=== PATIENT | male | born 1965 | race African-American/Black ===

== ENCOUNTER 2016-07-09 13:40 | Emergency (ER) ==
[2016-07-09 14:33] LABS: MANUAL DIFF NEEDED? NO; URINE CULTURE NEEDED? NO; URINE MICRO REVIEW NEEDED? NO; URINE SOURCE CLEAN CATCH
[2016-07-09 14:38] LABS: BASO% 0.8 % (0.0-0.8); EOS# 0.11 X1000 (0.0-0.7); EOS% 2.2 % (0.0-10.0); HEMATOCRIT 43.2 % (42.0-52.0); HEMOGLOBIN 14.4 g/dL (14.0-18.0); LYMPH# 2.05 X1000 (1.2-3.4); LYMPH% 40.9 % (20.5-51.1); MCH 31.2 PG (27-31); MCHC 33.3 g/dL (33-37); MCV 93.5 FL (81-99); MONO# 0.38 X1000 (0.11-0.59); MONO% 7.6 % (1.7-9.3); MPV 10.2 FL (7.4-10.4); NEUT% 48.5 % (42.2-75.2); PLT 233 X1000 (130-400); RBC 4.62 XMIL (4.7-6.1)
[2016-07-09 14:45] LABS: BILIRUBIN URINE NEGATIVE (NEGATIVE); BLOOD URINE NEGATIVE (NEGATIVE); COLOR YELLOW; GLUCOSE URINE NEGATIVE (NEGATIVE); LEUKOCYTES URINE NEGATIVE (NEGATIVE); NITRITE URINE NEGATIVE (NEGATIVE); PH URINE 6.5; PROTEIN URINE NEGATIVE (NEGATIVE); SP GRAVITY URINE 1.022; TURBIDITY URINE CLEAR (CLEAR); UROBILINOGEN URINE NORMAL (NORMAL)
[2016-07-09 14:47] LABS: UR EPITHELIAL CELLS <10 /HPF (<10); URINE BACTERIA NEGATIVE /HPF; URINE RBC <10 /HPF (<10); URINE WBC <10 /HPF (<10)
[2016-07-09 14:56] LABS: AGAP 10; ALBUMIN 3.9 g/dL (3.5-5.0); ALKALINE PHOSPHATASE 88 U/L (32-122); AMYLASE 183 U/L (20-200); BUN 17 mg/dL (8-22); CALCIUM 9.7 mg/dL (8.8-10.2); CHLORIDE 105 mmol/L (98-107); COSMO 281; GOT 24 U/L (10-34); GPT 17 U/L (10-44); LIPASE 176 U/L (13-60); POTASSIUM 4.2 mmol/L (3.5-5.1); SODIUM 140 mmol/L (136-145); TCO2 25 mmol/L (25-35); TOTAL BILIRUBIN 0.26 mg/dL (0.20-1.00); TOTAL PROTEIN 6.9 g/dL (6.3-8.3)
--- NOTE | 2016-07-09 16:05 | PROVIDER DOCUMENTATION ---
HPI-General Adult - General Chief Complaint: Abdominal Pain Stated Complaint: KIDNEY PAIN Time Seen by Provider: 07/09/16 15:41 Source: patient Allergies/Adverse Reactions: Patient Allergies Allergy/AdvReac Type Severity Reaction Status Date / Time No Known Allergies Allergy Verified 07/09/16 16:57 Home Medications: Home Medication List Medication Instructions Recorded Confirmed Last Taken Type Ondansetron [Zofran] 4 mg PO Q6H PRN PRN #20 tablet 07/09/16 Unknown Rx Oxycodone/APAP 10 mg/325 mg 1 each PO Q4H PRN PRN #14 tablet 07/09/16 Unknown Rx [Percocet-10] - History of Present Illness -Gen Adult Nature of Presenting Problems: Pt. is 50 yom that presents with c/o abd pain that radiates around to his back. Pt. reports symptoms for two days and denies any N/V/D or fever. Pt. reports he only drinks occasionally and hasn't had anything alcoholic to drink in several days. Location of Pain/Injury: reports: abdomen. denies: head, face, mouth, neck, chest, upper extremity, hand(s), back, pelvis, genitalia, lower extremity, feet , upper body, lower body, generalized Pain Radiation: reports: back Quality of Pain: reports: aching. denies: burning, cramping, dull, fullness, indigestion, pressure, sharp, stabbing, tearing, throbbing, tightness Severity: reports: moderate. denies: mild, severe Onset/Duration: reports: gradual, 2 days ago Timing: reports: still present. denies: improving, gone now, resolved prior to arrival, intermittent, constant, changing over time, getting worse Context/Activities at Onset: reports: none. denies: recent emotional stress, recent physical stress, recent trauma history, possible bad food, cold exposure , out of country travel Modifying Factors: improves with: nothing Associated Symptoms: denies: anxiety, arm pain, back/neck pain, chest pain, constipation, cough, diaphoresis, diarrhea, dizziness, EENT symptoms, fatigue, fever/chills, genitourinary problems, headaches, heartburn, joint pain, loss of appetite, malaise, muscle aches, sinus congestion/drainage, nausea, rash, seizure, shortness of breath, sensory/motor loss, pain with inspiration, swelling/mass in abdomen, syncope, vomiting, weakness, trouble walking Similar Symptoms Previously?: Yes Recently seen or treated by another doctor?: No Review of Systems - Adult - REVIEW OF SYSTEMS - ADULT Constitutional: reports: see HPI. denies: chills, fever, fatique Eyes: reports: see HPI. denies: discharge, blurred vision, double vision Ears, Nose, Mouth & Throat: reports: see HPI. denies: ear discharge, ear pain, nose pain, loose teeth, mouth/dental pain, throat pain, throat swelling Cardiovascular: reports: see HPI. denies: chest pain, irregular heart rate, palpitations, syncope Respiratory: reports: see HPI. denies: chronic cough, cough, dyspnea on exertion, pleurisy, shortness of breath, wheezing Gastrointestinal: reports: see HPI, abdominal pain. denies: diarrhea, nausea, vomiting Genitourinary: reports: see HPI. denies: dysuria, discharge, flank pain, hesitency, urgency Musculoskeletal: reports: see HPI, back pain. denies: bone pain, joint pain, muscle aches, neck pain Integumentary: reports: see HPI. denies: hives, itching, rash, skin thickening Neurological: reports: see HPI. denies: ataxia, headache/migraines, numbness, seizure, tremors Psychiatric: reports: see HPI. denies: anxiety, depression, emotional problems , insomnia, panic attacks, suicidal thoughts Endocrine: reports: see HPI. denies: change in skin pigment, heat intolerance, polyuria Past History - Adult - PAST MEDICAL HISTORY-ADULT Review of Records: reports: Old Records Reviewed, Nursing Assessment Review, Medications Reviewed, Social history reviewed & non-contributory. Major Childhood Illnesses: reports: denies history Cardiovascular: reports: denies history Respiratory: reports: denies history Gastrointestinal: reports: denies history Obstetrical/Gynecological: reports: denies history Genitourinary: reports: denies history Musculoskeletal: reports: denies history Neurological: reports: denies history Psychiatric: reports: denies history Endocrine/Immune: reports: denies history Other Conditions: reports: denies history - PRIOR SURGERIES/PROCEDURES Surgical/Procedure History: reports: none - PRIOR HOSPITALIZATIONS Prior Hospitalizations: reports: none - IMMUNIZATION STATUS Childhood Immunizations: See Nurse Assessment Flu Vaccine: See Nurse Assessment - FAMILY HISTORY Family History: reviewed, not pertinent - SOCIAL HISTORY Smoking: denies Physical Exam-General - PHYSICAL EXAM-ADULT Initial Vital Signs Reviewed: Yes - CONSTITUTIONAL General Appearance: alert, mild distress, thin. negative: obese, anxious, lethargic, slow to respond, obtunded, combative - EYES Eyes: PERRL/EOMI, pink conjunctivae. negative: conjuctival exudate, scleral icterus, subconjunctival hemorrhage - HEAD, EARS, NOSE, MOUTH & THROAT HENMT: normocephalic/atraumatic, moist mucous membranes. negative: angioedema, frontal tenderness, maxillary tenderness - NECK Neck: non-tender, full range of motion, supple, normal inspection. negative: lymphadenopathy, trachial deviation, thyromegaly - RESPIRATORY Respiratory: lungs clear, normal breath sounds. negative: crackles, rales, rhonchi, stridor, wheezing - CARDIOVASCULAR Cardiovascular: normal peripheral pulses, regular rate, rhythm, no edema, no JVD , no murmur. negative: extra beats, friction rub, irregularly irregular - CHEST (BREASTS) Chest/Breast: deferred - GASTROINTESTINAL (ABDOMEN) Abdominal Exam: soft, abnormal bowel sounds (Hypoactive), tenderness, Elizabeth's sign (On the left). negative: distended, guarding, rigid, rebound, hernia, mass - GENITOURINARY Male Genitalia: deferred Rectal Exam: deferred Hemoccult Exam: deferred - LYMPHATIC Lymphatic: no adenopathy. negative: axilla node tender, cervical node tenderness - MUSCULOSKELETAL Back Exam: normal inspection, no CVA tenderness, no vertebral tenderness. negative: ecchymosis, swelling, vertebral tenderness Extremity: normal range of motion, non-tender, normal gait, normal inspection. negative: deformity, erythema, inflammation, swelling, tenderness Peripheral Pulses: radial (R): 2+, radial (L): 2+ - SKIN Integumentary: normal color, normal turgor, warm/dry. negative: cyanosis, diaphoresis, ecchymosis, erythema, jaundice, mottled, pallor, petechiae, purpura , rash, swelling, tenderness - NEUROLOGIC Neurologic: grossly normal, no motor/sensory deficits. negative: aphasia, facial droop, focal weakness, motor weakness, sensory deficit - PSYCHIATRIC Psych/Mental Status: normal mood/affect, normal thought content, normal thought process, oriented x 3. negative: anxious, paranoid, tearful Progress - PLAN OF CARE/RESULTS Progress/Plan/Lab Results: Discussed results and plan of care with patient. Patient agrees with plan and verbalizes understanding. Vital Signs Temp Pulse Resp BP Pulse Ox 07/09/16 14:12 97.3 F L 75 16 128/80 100 No Known Allergies Allergy (Verified 07/09/16 16:57) No Home Medications 07/09/16 Dietary Diet NPO Start ThuJul 09 141 I&O 07/08/16 07/09/16 07/10/16 06:59 06:59 06:59 Output Total 50 Balance -50 Laboratory 07/09/16 07/09/16 07/09/16 14:20 14:20 14:20 WBC 5.01 RBC 4.62 L Hgb 14.4 Hct 43.2 MCV 93.5 MCH 31.2 H MCHC 33.3 RDW Std Deviation 13.5 Plt Count 233 MPV 10.2 Immature Gran % (Auto) 0.0 Neut % (Auto) 48.5 Lymph % (Auto) 40.9 [place] % (Auto) 7.6 Eos % (Auto) 2.2 Baso % (Auto) 0.8 Immature Gran # (Auto) 0.00 Neut # (Auto) 2.43 Lymph # (Auto) 2.05 [place] # (Auto) 0.38 Eos # (Auto) 0.11 Baso # (Auto) 0.04 Sodium 140 Potassium 4.2 Chloride 105 Carbon Dioxide 25 Anion Gap 10 BUN 17 Creatinine 1.3 H Estimated GFR/1.73 m2 > 60 BUN/Creatinine Ratio 13 Glucose 106 H Calculated Osmolality 281 Calcium 9.7 Total Bilirubin 0.26 AST 24 ALT 17 Alkaline Phosphatase 88 Total Protein 6.9 Albumin 3.9 Globulin 3.0 Albumin/Globulin Ratio 1.3 Amylase 183 Lipase 176 H Urine Source CLEAN CATCH Urine Color YELLOW Urine Turbidity CLEAR Urine pH 6.5 Ur Specific [place] 1.022 Urine Protein NEGATIVE Ur Glucose (Stick) NEGATIVE Ur Ketones (Stick) NEGATIVE Urine Blood NEGATIVE Urine Nitrite NEGATIVE Urine Bilirubin NEGATIVE Urobilinogen Dipstick NORMAL Urine Leukocytes NEGATIVE Urine WBC (Auto) <10 Urine RBC (Auto) <10 U Epithel Cells (Auto) <10 Urine Bacteria (Auto) NEGATIVE Orders Category Date Time Status Saline Loc DIRECTED Care 07/09/16 14:15 Active NPO Diet 07/09/16 14:[address] ABD/PELVIS W/ IV CONT ONLY [CT] Stat Exams 07/09/16 16:01 Draft AMYLASE [CHEM] Stat Lab 07/09/16 14:20 Completed CBC WITH ELECTRONIC DIFF [HEME] Stat Lab 07/09/16 14:20 Completed COMPREHENSIVE METABOLIC PANEL [CHEM] Stat Lab 07/09/16 14:20 Completed LIPASE [CHEM] Stat Lab 07/09/16 14:20 Completed URINALYSIS W/POSS RFLX CULT [URINALYSIS] Stat Lab 07/09/16 14:20 Completed Laboratory Tests 07/09/16 07/09/16 07/09/16 14:20 14:20 14:20 WBC 5.01 RBC 4.62 L Hgb 14.4 Hct 43.2 MCV 93.5 MCH 31.2 H MCHC 33.3 RDW Std Deviation 13.5 Plt Count 233 MPV 10.2 Immature Gran % (Auto) 0.0 Neut % (Auto) 48.5 Lymph % (Auto) 40.9 [place] % (Auto) 7.6 Eos % (Auto) 2.2 Baso % (Auto) 0.8 Immature Gran # (Auto) 0.00 Neut # (Auto) 2.43 Lymph # (Auto) 2.05 [place] # (Auto) 0.38 Eos # (Auto) 0.11 Baso # (Auto) 0.04 Sodium 140 Potassium 4.2 Chloride 105 Carbon Dioxide 25 Anion Gap 10 BUN 17 Creatinine 1.3 H Estimated GFR/1.73 m2 > 60 BUN/Creatinine Ratio 13 Glucose 106 H Calculated Osmolality 281 Calcium 9.7 Total Bilirubin 0.26 AST 24 ALT 17 Alkaline Phosphatase 88 Total Protein 6.9 Albumin 3.9 Globulin 3.0 Albumin/Globulin Ratio 1.3 Amylase 183 Lipase 176 H Urine Source CLEAN CATCH Urine Color YELLOW Urine Turbidity CLEAR Urine pH 6.5 Ur Specific [place] 1.022 Urine Protein NEGATIVE Ur Glucose (Stick) NEGATIVE Ur Ketones (Stick) NEGATIVE Urine Blood NEGATIVE Urine Nitrite NEGATIVE Urine Bilirubin NEGATIVE Urobilinogen Dipstick NORMAL Urine Leukocytes NEGATIVE Urine WBC (Auto) <10 Urine RBC (Auto) <10 U Epithel Cells (Auto) <10 Urine Bacteria (Auto) NEGATIVE Discussed results and plan of care with Dr. Jeffries and he agrees with plan. - CT/MRI 1 CT Study: Abdomen (No bowel obstruction, No hydronephrosis. no free air, Trace pelvic fluid. Mildly prominent liver. ([place])) CT Results: see note Departure - Departure Time of Disposition Order: 17:05 DIAGNOSIS: Pancreatitis Qualifiers: Chronicity: acute Pancreatitis type: unspecified pancreatitis type Acute pancreatitis complication: unspecified Qualified Code(s): K85.90 - Acute pancreatitis without necrosis or infection, unspecified Abdominal pain Qualifiers: Abdominal location: left upper quadrant Qualified Code(s): R10.12 - Left upper quadrant pain Disposition: HOME 01 Certified Medical Emergency: Emergent Condition: Stable Additional Instructions: Follow up with primary care physician Follow up with GI physician Take medications as directed Eat 6 small meals per day and avoid fatty foods and spicy foods Return to ED for any concerns or worsening of symptoms ED Follow Up Instructions: You have been treated by a care provider in the Emergency Department. These instructions are being provided to you so you can have an understanding of how to care for yourself upon discharge. Upon discharge from the Emergency Department, you are responsible for making arrangements for follow-up care by a physician of your choice. Take all prescribed medications as directed. Return to the Emergency Department immediately for any new or worsening symptoms. You may call the Physician Referral phone number at [phone] to obtain a list of Physicians who are taking new patients. Prescriptions: Oxycodone/APAP 10 mg/325 mg [Percocet-10] 1 each PO Q4H PRN PRN #14 tablet PRN Reason: Pain Ondansetron [Zofran] 4 mg PO Q6H PRN PRN #20 tablet PRN Reason: Nausea Referrals: None,PCP [Primary Care Provider] - Zaire Sweeney MD [STAFF PHYSICIAN] - Attestation - Physician/ ADDY Attestation Patient care was provided by Advanced Practice Provider:: Yes Advanced Practice Provider:: America Santana Advanced Practice Provider documentation review:: The Mid-level provider documentation, treatment plan and medical decision making was reviewed by the physician who agrees with all treatment and medical decision making by the MLP.
--- NOTE | 2016-07-09 16:57 | Diag Imaging Result Document ---
PROCEDURE NAME: CT ABD/PELVIS W/ IV CONT ONLY - 07/09/2016 CT ABDOMEN AND PELVIS WITH INTRAVENOUS CONTRAST. DOSE REDUCTION PROTOCOL. FINDINGS: The stomach is distended with debris. Normal spleen. The liver is enlarged. There is a tiny cyst in the right lobe. The gallbladder is contracted. No abnormality to the pancreas identified. Normal adrenal glands. Normal enhancement of the kidneys. No hydronephrosis. No aortic aneurysm. Mild atherosclerosis. No bowel obstruction. Exam is limited without intra-abdominal fat and oral contrast. There is trace fluid in the pelvis. No definite inflammation about the cecum. No abscess. No free air. IMPRESSION: 1. Mildly prominent liver. 2. No hydronephrosis. 3. Trace pelvic fluid. A preliminary report was given at 4:29 p.m..
[2016-07-09 17:15] VITALS: BP 125/61
== END 2016-07-09 17:18 | disposition home or self-care (01) ==
LOC: ED 13:40
DX: K85.90 Acute pancreatitis without necrosis or infection, unspecified (principal); R10.12 Left upper quadrant pain; M54.9 Dorsalgia, unspecified; R19.15 Other abnormal bowel sounds; R10.819 Abdominal tenderness, unspecified site
CPT/HCPCS: 74177; 80053; 81001; 82150; 83690; 85025; Q9967

== ENCOUNTER 2016-07-11 13:14 | Emergency (ER) ==
[2016-07-11 13:49] LABS: MANUAL DIFF NEEDED? NO
[2016-07-11 13:54] LABS: BASO% 0.2 % (0.0-0.8); EOS# 0.14 X1000 (0.0-0.7); EOS% 1.4 % (0.0-10.0); HEMATOCRIT 46.9 % (42.0-52.0); HEMOGLOBIN 15.7 g/dL (14.0-18.0); LYMPH# 2.46 X1000 (1.2-3.4); LYMPH% 25.3 % (20.5-51.1); MCH 31.1 PG (27-31); MCHC 33.5 g/dL (33-37); MCV 92.9 FL (81-99); MONO# 0.44 X1000 (0.11-0.59); MONO% 4.5 % (1.7-9.3); MPV 10.4 FL (7.4-10.4); NEUT% 68.6 % (42.2-75.2); PLT 221 X1000 (130-400); RBC 5.05 XMIL (4.7-6.1)
[2016-07-11] MEDS ORDERED: NS 1,000 ML IV ONE (15:34)
[2016-07-11] MEDS ORDERED: MORPHINE IV ONE (15:35)
[2016-07-11] MEDS ORDERED: ZOFRAN IV ONE (15:35)
[2016-07-11 16:14] LABS: URINE CULTURE NEEDED? NO; URINE SOURCE CLEAN CATCH
--- NOTE | 2016-07-11 16:24 | PROVIDER DOCUMENTATION ---
HPI-Abdominal Pain/GI Problem - General Source: patient - History of Present Illness-ABD Nature of Presenting Problems: Pt is a 50 yom who came to the ED with a cc of abdominal and having pancreatitis. Pt reports he was here Thursday and was diagnosed with pancreatitis. Pt report he has left lower abdominal pain. Abdominal Pain Onset Location: reports: LLQ Pain Radiation: reports: back Quality of Pain: reports: sharp Onset/Duration: reports: 2 days ago Timing: reports: still present Activities at Onset: reports: none Modifying Factors: improves with: nothing Associated Symptoms: reports: denies symptoms Last BM: unsure Dark Stools Present?: reports: none noticed Rectal Bleeding: reports: none Rectal Pain: reports: none Bruising or Bleeding Gums?: No Similar Symptoms Previously?: No Recently seen or treated by another doctor?: No <Lilly Solorzano - Last Filed: 07/11/16 17:41> <Ross Torres - Last Filed: 07/11/16 18:13> <Boston Meier - Last Filed: 07/11/16 18:32> - General Chief Complaint: Abdominal Pain Stated Complaint: RECHECK-ABD PAIN Time Seen by Provider: 07/11/16 15:17 Allergies/Adverse Reactions: Patient Allergies Allergy/AdvReac Type Severity Reaction Status Date / Time No Known Allergies Allergy Verified 07/09/16 16:57 Home Medications: Home Medication List Medication Instructions Recorded Confirmed Last Taken Type Ondansetron [Zofran] 4 mg PO Q6H PRN PRN #20 tablet 07/09/16 Unknown Rx Oxycodone/APAP 10 mg/325 mg 1 each PO Q4H PRN PRN #14 tablet 07/09/16 Unknown Rx [Percocet-10] Review of Systems - Adult - REVIEW OF SYSTEMS - ADULT Constitutional: denies: chills, fever Eyes: denies: blurred vision, double vision Ears, Nose, Mouth & Throat: reports: no symptoms reported Cardiovascular: reports: no symptoms reported Respiratory: reports: no symptoms reported Gastrointestinal: reports: abdominal pain. denies: diarrhea, nausea, vomiting Genitourinary: reports: no symptoms reported Musculoskeletal: reports: no symptoms reported Integumentary: reports: no symptoms reported Neurological: reports: no symptoms reported Psychiatric: reports: no symptoms reported Endocrine: reports: no symptoms reported Hematologic/Lymphatic: reports: no symptoms reported Allergic/Immunologic: reports: no symptoms reported All Other Systems: Reviewed and Negative <Lilly Solorzano - Last Filed: 07/11/16 17:41> Past History - Adult - PAST MEDICAL HISTORY-ADULT Review of Records: reports: Old Records Reviewed, Nursing Assessment Review Major Childhood Illnesses: reports: denies history Cardiovascular: reports: denies history Respiratory: reports: denies history Gastrointestinal: reports: denies history Obstetrical/Gynecological: reports: denies history Genitourinary: reports: denies history Musculoskeletal: reports: denies history Neurological: reports: denies history Psychiatric: reports: denies history Endocrine/Immune: reports: denies history Other Conditions: reports: denies history - PRIOR SURGERIES/PROCEDURES Surgical/Procedure History: reports: none - PRIOR HOSPITALIZATIONS Prior Hospitalizations: reports: none - IMMUNIZATION STATUS Childhood Immunizations: See Nurse Assessment Flu Vaccine: See Nurse Assessment - FAMILY HISTORY Family History: reviewed, not pertinent <Lilly Solorzano - Last Filed: 07/11/16 17:41> Physical Exam-General - PHYSICAL EXAM-ADULT Initial Vital Signs Reviewed: Yes - CONSTITUTIONAL General Appearance: alert - EYES Eyes: PERRL/EOMI, pink conjunctivae - HEAD, EARS, NOSE, MOUTH & THROAT HENMT: normocephalic/atraumatic, moist mucous membranes, normal ENT inspection - NECK Neck: non-tender - RESPIRATORY Respiratory: chest non-tender, lungs clear, normal breath sounds - CARDIOVASCULAR Cardiovascular: normal peripheral pulses, regular rate, rhythm, no edema, no gallop, no JVD, no murmur - GASTROINTESTINAL (ABDOMEN) Abdominal Exam: tenderness (LLQ) - MUSCULOSKELETAL Back Exam: normal inspection, no CVA tenderness, no vertebral tenderness Extremity: normal range of motion - SKIN Integumentary: warm/dry - NEUROLOGIC Neurologic: grossly normal - PSYCHIATRIC Psych/Mental Status: normal mood/affect, normal thought content, oriented x 3 <Lilly Solorzano - Last Filed: 07/11/16 17:41> Progress - PLAN OF CARE/RESULTS Progress/Plan/Lab Results: Vital Signs - 24 hr 07/11/16 13:32 Temperature 97.3 F L Pulse Rate 78 Respiratory 18 Rate Blood Pressure 126/86 O2 Sat by Pulse 100 Oximetry Orders Category Date Time Status NPO Diet 07/11/16 13:37 Active ALCOHOL BLOOD Stat Lab 07/11/16 13:41 Received AMYLASE [CHEM] Stat Lab 07/11/16 13:41 Completed CBC WITH ELECTRONIC DIFF [HEME] Stat Lab 07/11/16 13:41 Completed COMPREHENSIVE METABOLIC PANEL [CHEM] Stat Lab 07/11/16 13:41 Received LIPASE [CHEM] Stat Lab 07/11/16 13:41 Received UA NIMS W/REFLEX CULT [URINALYSIS] Stat Lab 07/11/16 16:13 Results URINE DRUG SCREEN Stat Lab 07/11/16 16:13 Received 0.9% Sodium Chloride Inj [Ns] 1,000 ml Med 07/11/16 15:34 Active IV 999 mls/hr Morphine Med 07/11/16 15:35 Discontinued 4 mg IV NOW ONE Ondansetron [Zofran] Med 07/11/16 15:35 Discontinued 4 mg IV NOW ONE Laboratory Tests 07/11/16 07/11/16 07/11/16 13:41 13:41 16:13 WBC 9.73 RBC 5.05 Hgb 15.7 Hct 46.9 MCV 92.9 MCH 31.1 H MCHC 33.5 RDW Std Deviation 13.8 Plt Count 221 MPV 10.4 Immature Gran % (Auto) 0.0 Neut % (Auto) 68.6 Lymph % (Auto) 25.3 [place] % (Auto) 4.5 Eos % (Auto) 1.4 Baso % (Auto) 0.2 Immature Gran # (Auto) 0.00 Neut # (Auto) 6.67 H Lymph # (Auto) 2.46 [place] # (Auto) 0.44 Eos # (Auto) 0.14 Baso # (Auto) 0.02 Amylase 136 Urine Source CLEAN CATCH - REASSESSMENT Reassessment #1 Time Reassessed: 16:50 (Dr. Trent called lab to discuss the CMP and lipase. Lab is trying to locate the blood. ) - CHANGE OF SHIFT REPORT (ED Provider) Report Given and Care Transferred to:: Dr. Torres Time of Transfer: 17:43 <Lilly Solorzano - Last Filed: 07/11/16 17:41> - REASSESSMENT Reassessment #1 Time Reassessed: 18:14 (pt s labs and xr discuseed to him by dr trent /pt had neg abd ct 2 days ago ..pt w/pos cocain ,,also multiple visits for pain tx ...pt not jet satisfy ..) Status: improving <BrianGwyn - Last Filed: 07/11/16 18:13> - PLAN OF CARE/RESULTS Progress/Plan/Lab Results: Vital Signs - 24 hr 07/11/16 13:32 Temperature 97.3 F L Pulse Rate 78 Respiratory 18 Rate Blood Pressure 126/86 O2 Sat by Pulse 100 Oximetry Orders Category Date Time Status NPO Diet 07/11/16 13:37 Active flat [FLAT/UPRIGHT ABD/1 VIEW CHEST] [RAD] Stat Exams 07/11/16 17:24 Taken ALCOHOL BLOOD Stat Lab 07/11/16 13:41 Completed AMYLASE [CHEM] Stat Lab 07/11/16 13:41 Completed CBC WITH ELECTRONIC DIFF [HEME] Stat Lab 07/11/16 13:41 Completed CK PROFILE [SP CHEM] Stat Lab 07/11/16 13:41 Completed COMPREHENSIVE METABOLIC PANEL [CHEM] Stat Lab 07/11/16 13:41 Completed LIPASE [CHEM] Stat Lab 07/11/16 13:41 Completed TROPONIN T Stat Lab 07/11/16 13:41 Completed UA NIMS W/REFLEX CULT [URINALYSIS] Stat Lab 07/11/16 16:13 Completed URINE DRUG SCREEN Stat Lab 07/11/16 16:13 Completed URINE MANUAL MICROSCOPIC [URINALYSIS] Stat Lab 07/11/16 16:13 Completed 0.9% Sodium Chloride Inj [Ns] 1,000 ml Med 07/11/16 15:34 Discontinued IV 999 mls/hr Hydromorphone [Dilaudid] Med 07/11/16 16:52 Discontinued 1 mg IV NOW ONE Morphine Med 07/11/16 15:35 Discontinued 4 mg IV NOW ONE Ondansetron [Zofran] Med 07/11/16 15:35 Discontinued 4 mg IV NOW ONE EKG [EKG] Stat Ther 07/11/16 17:24 Ordered Laboratory Tests 07/11/16 07/11/16 07/11/16 13:41 13:41 13:41 WBC 9.73 RBC 5.05 Hgb 15.7 Hct 46.9 MCV 92.9 MCH 31.1 H MCHC 33.5 RDW Std Deviation 13.8 Plt Count 221 MPV 10.4 Immature Gran % (Auto) 0.0 Neut % (Auto) 68.6 Lymph % (Auto) 25.3 [place] % (Auto) 4.5 Eos % (Auto) 1.4 Baso % (Auto) 0.2 Immature Gran # (Auto) 0.00 Neut # (Auto) 6.67 H Lymph # (Auto) 2.46 [place] # (Auto) 0.44 Eos # (Auto) 0.14 Baso # (Auto) 0.02 Sodium Potassium Chloride Carbon Dioxide Anion Gap BUN Creatinine Estimated GFR/1.73 m2 BUN/Creatinine Ratio Glucose Calculated Osmolality Calcium Total Bilirubin AST ALT Alkaline Phosphatase Creatine Kinase Troponin T Total Protein Albumin Globulin Albumin/Globulin Ratio Amylase 136 Lipase Urine Source Urine Color Urine Turbidity Urine pH Ur Specific [place] Urine Protein Ur Glucose (Stick) Ur Ketones (Stick) Urine Blood Urine Nitrite Urine Bilirubin Urobilinogen Dipstick Urine Leukocytes Urine WBC (Auto) Urine RBC (Auto) U Epithel Cells (Auto) Urine Bacteria (Auto) Urine Crystals Small Round Cells Urine Casts Urine Yeast-like Cells Urine Opiates Screen Ur Oxycodone Screen Ur Methadone, Qual Ur Barbiturates Screen Ur Phencyclidine Scrn Ur Amphetamines Screen U Benzodiazepines Scrn Urine Cocaine Screen U Cannabinoids Screen Plasma/Serum Ethyl Alc 07/11/16 07/11/16 07/11/16 13:41 13:41 13:41 WBC RBC Hgb Hct MCV MCH MCHC RDW Std Deviation Plt Count MPV Immature Gran % (Auto) Neut % (Auto) Lymph % (Auto) [place] % (Auto) Eos % (Auto) Baso % (Auto) Immature Gran # (Auto) Neut # (Auto) Lymph # (Auto) [place] # (Auto) Eos # (Auto) Baso # (Auto) Sodium 134 L Potassium 4.6 Chloride 98 Carbon Dioxide 25 Anion Gap 11 BUN 19 Creatinine 1.0 Estimated GFR/1.73 m2 > 60 BUN/Creatinine Ratio 19 Glucose 107 H Calculated Osmolality 271 Calcium 9.5 Total Bilirubin 0.44 AST 25 ALT 19 Alkaline Phosphatase 91 Creatine Kinase 170 Troponin T < 0.010 Total Protein 7.4 Albumin 4.3 Globulin 3.1 Albumin/Globulin Ratio 1.4 Amylase Lipase 69 H Urine Source Urine Color Urine Turbidity Urine pH Ur Specific [place] Urine Protein Ur Glucose (Stick) Ur Ketones (Stick) Urine Blood Urine Nitrite Urine Bilirubin Urobilinogen Dipstick Urine Leukocytes Urine WBC (Auto) Urine RBC (Auto) U Epithel Cells (Auto) Urine Bacteria (Auto) Urine Crystals Small Round Cells Urine Casts Urine Yeast-like Cells Urine Opiates Screen Ur Oxycodone Screen Ur Methadone, Qual Ur Barbiturates Screen Ur Phencyclidine Scrn Ur Amphetamines Screen U Benzodiazepines Scrn Urine Cocaine Screen U Cannabinoids Screen Plasma/Serum Ethyl Alc 07/11/16 07/11/16 16:13 16:13 WBC RBC Hgb Hct MCV MCH MCHC RDW Std Deviation Plt Count MPV Immature Gran % (Auto) Neut % (Auto) Lymph % (Auto) [place] % (Auto) Eos % (Auto) Baso % (Auto) Immature Gran # (Auto) Neut # (Auto) Lymph # (Auto) [place] # (Auto) Eos # (Auto) Baso # (Auto) Sodium Potassium Chloride Carbon Dioxide Anion Gap BUN Creatinine Estimated GFR/1.73 m2 BUN/Creatinine Ratio Glucose Calculated Osmolality Calcium Total Bilirubin AST ALT Alkaline Phosphatase Creatine Kinase Troponin T Total Protein Albumin Globulin Albumin/Globulin Ratio Amylase Lipase Urine Source CLEAN CATCH Urine Color YELLOW Urine Turbidity CLEAR Urine pH 5.5 Ur Specific [place] 1.031 Urine Protein NEGATIVE Ur Glucose (Stick) NEGATIVE Ur Ketones (Stick) NEGATIVE Urine Blood TRACE A Urine Nitrite NEGATIVE Urine Bilirubin NEGATIVE Urobilinogen Dipstick NORMAL Urine Leukocytes NEGATIVE Urine WBC (Auto) <10 Urine RBC (Auto) <10 U Epithel Cells (Auto) <10 Urine Bacteria (Auto) NEGATIVE Urine Crystals CA OXALATE PRESENT Small Round Cells NONE SEEN Urine Casts NONE SEEN Urine Yeast-like Cells PRESENT Urine Opiates Screen NONE DETECTED Ur Oxycodone Screen NONE DETECTED Ur Methadone, Qual NONE DETECTED Ur Barbiturates Screen NONE DETECTED Ur Phencyclidine Scrn NONE DETECTED Ur Amphetamines Screen NONE DETECTED U Benzodiazepines Scrn NONE DETECTED Urine Cocaine Screen PRESUMPTIVE POSITIVE A U Cannabinoids Screen PRESUMPTIVE POSITIVE A Plasma/Serum Ethyl Alc - EKG 1 Time of EKG reading by physician:: 18:01 EKG Read and Signed by:: Ross Torres EKG Interpretation (*Must complete 3 of following elements*): Abnormal ( Possible R ventricular hypertrophy; Possible Lateral infarct, age undetermined) Rate: 50 Rhythm: Sinus bradycardia <Boston Meier - Last Filed: 07/11/16 18:32> Departure <Lilly Solorzano - Last Filed: 07/11/16 17:41> - Departure Time of Disposition Order: 18:16 Certified Medical Emergency: Emergent <Ross Torres - Last Filed: 07/11/16 18:13> - Departure Time of Disposition Order: 18:31 Certified Medical Emergency: Emergent <Boston Meier - Last Filed: 07/11/16 18:32> - Departure DIAGNOSIS: Cocaine abuse, Pain disorder Abdominal pain Qualifiers: Abdominal location: unspecified location Qualified Code(s): R10.9 - Unspecified abdominal pain Disposition: HOME 01 Condition: Stable Additional Instructions: ED Follow Up Instructions:continue home meds You have been treated by a care provider in the Emergency Department. These instructions are being provided to you so you can have an understanding of how to care for yourself upon discharge. Upon discharge from the Emergency Department, you are responsible for making arrangements for follow-up care by a physician of your choice. Take all prescribed medications as directed. Return to the Emergency Department immediately for any new or worsening symptoms. You may call the Physician Referral phone number at [phone] to obtain a list of Physicians who are taking new patients. Referrals: None,PCP [Primary Care Provider] - Zaire Sweeney MD [STAFF PHYSICIAN] - Forms: Return to School/Parent Work Instructions: Stimulant Use Disorder-Cocaine, Abdominal Pain, Adult, Easy-to- Read Attestation - Scribe Verification/Attestation Scribe:: Lilly Solorzano Acting as Scribe for:: Serena Trent Scribe documention review:: This chart was documented by a scribe and accurately reflects the service the provider performed and the decisions made by the provider. - Scribe Verification/Attestation #2 Shift Change Time: 17:44 Scribe Name: Boston Meier Acting as Scribe for:: Ross Torres <Lilly Solorzano - Last Filed: 07/11/16 17:41> - Scribe Verification/Attestation Scribe:: Boston Meier Acting as Scribe for:: Ross Torres Scribe documention review:: This chart was documented by a scribe and accurately reflects the service the provider performed and the decisions made by the provider. <Boston Meier - Last Filed: 07/11/16 18:32> Physician Attestation
[2016-07-11 16:43] LABS: BILIRUBIN URINE NEGATIVE (NEGATIVE); BLOOD URINE TRACE (NEGATIVE); COLOR YELLOW; GLUCOSE URINE NEGATIVE (NEGATIVE); LEUKOCYTES URINE NEGATIVE (NEGATIVE); NITRITE URINE NEGATIVE (NEGATIVE); PH URINE 5.5; PROTEIN URINE NEGATIVE (NEGATIVE); SP GRAVITY URINE 1.031; TURBIDITY URINE CLEAR (CLEAR); UROBILINOGEN URINE NORMAL (NORMAL)
[2016-07-11 16:44] LABS: URINE MICRO REVIEW NEEDED? YES
[2016-07-11] MEDS ORDERED: DILAUDID IV ONE (16:52)
[2016-07-11 17:01] LABS: URINE WBC <10 /HPF (<10)
[2016-07-11 17:02] LABS: UR EPITHELIAL CELLS <10 /HPF (<10); URINE BACTERIA NEGATIVE /HPF; URINE CASTS NONE SEEN; URINE CRYSTALS CA OXALATE PRESENT; URINE RBC <10 /HPF (<10); URINE SMALL ROUND CELLS NONE SEEN
[2016-07-11 17:06] LABS: UR AMPHETAMINES QUAL NONE DETECTED (NONE DETECT); UR BARBITUATES QUAL NONE DETECTED (NONE DETECT); UR BENZODIAZEPIN QUAL NONE DETECTED (NONE DETECT); UR CANNABINOIDS QUAL PRESUMPTIVE POSITIVE (NONE DETECT); UR COCAINE QUAL PRESUMPTIVE POSITIVE (NONE DETECT); UR METHADONE QUAL NONE DETECTED (NONE DETECT); UR OPIATES QUAL NONE DETECTED (NONE DETECT); UR OXYCODONE QUAL NONE DETECTED (NONE DETECT); UR PCP QUAL NONE DETECTED (NONE DETECT)
[2016-07-11 17:13] LABS: AGAP 11; ALBUMIN 4.3 g/dL (3.5-5.0); ALKALINE PHOSPHATASE 91 U/L (32-122); BUN 19 mg/dL (8-22); CALCIUM 9.5 mg/dL (8.8-10.2); CHLORIDE 98 mmol/L (98-107); COSMO 271; GOT 25 U/L (10-34); GPT 19 U/L (10-44); LIPASE 69 U/L (13-60); POTASSIUM 4.6 mmol/L (3.5-5.1); SODIUM 134 mmol/L (136-145); TCO2 25 mmol/L (25-35); TOTAL BILIRUBIN 0.44 mg/dL (0.20-1.00); TOTAL PROTEIN 7.4 g/dL (6.3-8.3)
[2016-07-11 18:40] VITALS: BP 118/54
--- NOTE | 2016-07-11 22:55 | Diag Imaging Result Document ---
PROCEDURE NAME: FLAT/UPRIGHT ABD/1 VIEW CHEST - 07/11/2016 PLAIN RADIOGRAPH OF THE CHEST AND ABDOMEN 3 VIEWS: COMPARISON: Chest radiograph dated 03/28/2016. FINDINGS: There are unremarkable bowel gas and stool patterns. There is no definite obstructive pattern. There is no evidence of large-volume free abdominal gas. Lungs are clear and cardiac silhouette is unremarkable. IMPRESSION: No definite acute pathology.
--- NOTE | 2016-07-13 06:35 | EKG Report ---
Test Performed on : 07/11/2016 6:01:49 PM Test Reason : COUGH Blood Pressure : / mmHG Vent. Rate : 050 BPM Atrial Rate : 050 BPM P-R Int : 154 ms QRS Dur : 088 ms QT Int : 444 ms P-R-T Axes : 068 071 058 degrees QTc Int : 404 ms Sinus bradycardia. Possible Right ventricular hypertrophy Possible Lateral infarct , age undetermined Abnormal ECG When compared with ECG of 18-DEC-2014 13:30, premature atrial complexes. are no longer present Vent. rate has decreased BY 26 BPM Unconfirmed Result
== END 2016-07-11 19:20 | disposition home or self-care (01) ==
LOC: ED 13:14
DX: R10.32 Left lower quadrant pain (principal); F14.10 Cocaine abuse, uncomplicated; R94.31 Abnormal electrocardiogram [ECG] [EKG]; F41.0 Panic disorder [episodic paroxysmal anxiety]
CPT/HCPCS: 36415; 74022; 80053; 81001; 82150; 82550; 83690; 84484; 85025; 93005; 96374; 96375; G0480; J1170; J2270; J2405; J7030; 80320; 80324; 80345; 80346; 80349; 80353; 80358; 80361; 80365; 83992

== ENCOUNTER 2016-07-15 21:37 | Emergency (ER) ==
[2016-07-15 21:53] LABS: MANUAL DIFF NEEDED? NO
[2016-07-15 21:57] LABS: BASO% 0.2 % (0.0-0.8); EOS# 0.05 X1000 (0.0-0.7); EOS% 0.6 % (0.0-10.0); HEMATOCRIT 40.9 % (42.0-52.0); HEMOGLOBIN 13.7 g/dL (14.0-18.0); LYMPH# 2.07 X1000 (1.2-3.4); LYMPH% 23.6 % (20.5-51.1); MCH 31.6 PG (27-31); MCHC 33.5 g/dL (33-37); MCV 94.2 FL (81-99); MONO# 0.51 X1000 (0.11-0.59); MONO% 5.8 % (1.7-9.3); MPV 10.7 FL (7.4-10.4); NEUT% 69.8 % (42.2-75.2); PLT 208 X1000 (130-400); RBC 4.34 XMIL (4.7-6.1)
[2016-07-15 22:28] LABS: AGAP 12; ALBUMIN 3.8 g/dL (3.5-5.0); ALKALINE PHOSPHATASE 75 U/L (32-122); AMYLASE 127 U/L (20-200); BUN 16 mg/dL (8-22); CALCIUM 9.7 mg/dL (8.8-10.2); CHLORIDE 110 mmol/L (98-107); COSMO 292; GOT 21 U/L (10-34); GPT 14 U/L (10-44); LIPASE 45 U/L (13-60); POTASSIUM 4.7 mmol/L (3.5-5.1); SODIUM 144 mmol/L (136-145); TCO2 22 mmol/L (25-35); TOTAL BILIRUBIN 0.23 mg/dL (0.20-1.00); TOTAL PROTEIN 6.7 g/dL (6.3-8.3)
--- NOTE | 2016-07-15 23:29 | PROVIDER DOCUMENTATION ---
HPI-General Adult - General Source: patient - History of Present Illness -Gen Adult Nature of Presenting Problems: 50 year old M presents to the ED with a cc of chest pain, ABD pain, and cold sweats. PT states while at work tonight he broke into cold sweat and chest pains. PT was sent home and told to go the ED. PT also c/o epigastric ABD pain that pt believes may be related to pancreatitis. On arrival to ED, is pain free. Location of Pain/Injury: reports: chest, abdomen Pain Radiation: reports: no radiation Quality of Pain: reports: aching Severity: reports: mild Onset/Duration: reports: this evening Timing: reports: resolved prior to arrival Context/Activities at Onset: reports: none Associated Symptoms: reports: chest pain Similar Symptoms Previously?: No Recently seen or treated by another doctor?: No <Gerda Edwards - Last Filed: 07/15/16 23:26> <Paco Camarena - Last Filed: 07/16/16 00:23> - General Chief Complaint: General Adult Stated Complaint: COLD SX, FEVER, CP Time Seen by Provider: 07/15/16 22:35 Allergies/Adverse Reactions: Patient Allergies Allergy/AdvReac Type Severity Reaction Status Date / Time No Known Allergies Allergy Verified 07/16/16 00:05 Home Medications: Home Medication List Medication Instructions Recorded Confirmed Last Taken Type Azithromycin [Zithromax Z-Tonio] 250 mg PO DIRECTED #1 pkg 07/16/16 Unknown Rx Review of Systems - Adult - REVIEW OF SYSTEMS - ADULT Constitutional: denies: chills, fever Eyes: reports: no symptoms reported Ears, Nose, Mouth & Throat: reports: no symptoms reported Cardiovascular: reports: chest pain. denies: palpitations Respiratory: denies: cough, shortness of breath Gastrointestinal: reports: abdominal pain. denies: nausea, vomiting Genitourinary: reports: no symptoms reported Musculoskeletal: reports: no symptoms reported Integumentary: reports: no symptoms reported Neurological: reports: no symptoms reported Psychiatric: reports: no symptoms reported Endocrine: reports: no symptoms reported Hematologic/Lymphatic: reports: no symptoms reported Allergic/Immunologic: reports: no symptoms reported All Other Systems: Reviewed and Negative <Gerda Edwards - Last Filed: 07/15/16 23:26> Past History - Adult - PAST MEDICAL HISTORY-ADULT Review of Records: reports: Nursing Assessment Review, Medications Reviewed Major Childhood Illnesses: reports: denies history Cardiovascular: reports: denies history Respiratory: reports: denies history Gastrointestinal: reports: denies history Obstetrical/Gynecological: reports: denies history Genitourinary: reports: denies history Musculoskeletal: reports: denies history Neurological: reports: denies history Psychiatric: reports: denies history Endocrine/Immune: reports: denies history Other Conditions: reports: denies history - PRIOR SURGERIES/PROCEDURES Surgical/Procedure History: reports: none - PRIOR HOSPITALIZATIONS Prior Hospitalizations: reports: none - IMMUNIZATION STATUS Childhood Immunizations: See Nurse Assessment Flu Vaccine: See Nurse Assessment - FAMILY HISTORY Family History: reviewed, not pertinent - SOCIAL HISTORY Smoking: cigarettes, less than 1 pack/day Provider spent 3-5 mins advising pt. on dangers of tobacco.: Discussed manners to quit use, and f/u contacts for add'l counseling. Substance Use: marijuana Alcohol Use Frequency: occasionally <Gerda Edwards - Last Filed: 07/15/16 23:26> Physical Exam-General - PHYSICAL EXAM-ADULT Initial Vital Signs Reviewed: Yes - CONSTITUTIONAL General Appearance: appears well, alert, no apparent distress - RESPIRATORY Respiratory: chest non-tender, lungs clear, normal breath sounds - CARDIOVASCULAR Cardiovascular: normal peripheral pulses, regular rate, rhythm, no edema - GASTROINTESTINAL (ABDOMEN) Abdominal Exam: normal bowel sounds, non tender, soft - MUSCULOSKELETAL Extremity: normal inspection - SKIN Integumentary: normal color, normal turgor, warm/dry - PSYCHIATRIC Psych/Mental Status: normal mood/affect, normal thought content, normal thought process, oriented x 3 <Gerda Edwards - Last Filed: 07/15/16 23:26> Progress - PLAN OF CARE/RESULTS Progress/Plan/Lab Results: Orders Category Date Time Status NPO Diet 07/15/16 21:43 Active CHEST-2 VIEWS [RAD] Stat Exams 07/15/16 22:36 Taken AMYLASE [CHEM] Stat Lab 07/15/16 21:45 Completed CBC WITH ELECTRONIC DIFF [HEME] Stat Lab 07/15/16 21:45 Completed CK PROFILE [SP CHEM] Stat Lab 07/15/16 21:45 Completed COMPREHENSIVE METABOLIC PANEL [CHEM] Stat Lab 07/15/16 21:45 Completed Flu Swab [INFLUENZA SCREEN A/B] Stat Lab 07/15/16 23:15 Completed LIPASE [CHEM] Stat Lab 07/15/16 21:45 Completed TROPONIN T Stat Lab 07/15/16 21:45 Completed URINALYSIS W/POSS RFLX CULT [URINALYSIS] Stat Lab 07/15/16 21:43 Uncollected Azithromycin [Zithromax] Med 07/16/16 00:22 Once 500 mg PO NOW ONE Laboratory Tests 07/15/16 07/15/16 07/15/16 21:45 21:45 21:45 WBC 8.76 RBC 4.34 L Hgb 13.7 L Hct 40.9 L MCV 94.2 MCH 31.6 H MCHC 33.5 RDW Std Deviation 13.6 Plt Count 208 MPV 10.7 H Immature Gran % (Auto) 0.0 Neut % (Auto) 69.8 Lymph % (Auto) 23.6 [place] % (Auto) 5.8 Eos % (Auto) 0.6 Baso % (Auto) 0.2 Immature Gran # (Auto) 0.00 Neut # (Auto) 6.11 Lymph # (Auto) 2.07 [place] # (Auto) 0.51 Eos # (Auto) 0.05 Baso # (Auto) 0.02 Sodium 144 Potassium 4.7 Chloride 110 H Carbon Dioxide 22 L Anion Gap 12 BUN 16 Creatinine 1.0 Estimated GFR/1.73 m2 > 60 BUN/Creatinine Ratio 16 Glucose 163 H Calculated Osmolality 292 Calcium 9.7 Total Bilirubin 0.23 AST 21 ALT 14 Alkaline Phosphatase 75 Creatine Kinase 195 Troponin T Total Protein 6.7 Albumin 3.8 Globulin 2.9 Albumin/Globulin Ratio 1.3 Amylase 127 Lipase 45 07/15/16 21:45 WBC RBC Hgb Hct MCV MCH MCHC RDW Std Deviation Plt Count MPV Immature Gran % (Auto) Neut % (Auto) Lymph % (Auto) [place] % (Auto) Eos % (Auto) Baso % (Auto) Immature Gran # (Auto) Neut # (Auto) Lymph # (Auto) [place] # (Auto) Eos # (Auto) Baso # (Auto) Sodium Potassium Chloride Carbon Dioxide Anion Gap BUN Creatinine Estimated GFR/1.73 m2 BUN/Creatinine Ratio Glucose Calculated Osmolality Calcium Total Bilirubin AST ALT Alkaline Phosphatase Creatine Kinase Troponin T < 0.010 Total Protein Albumin Globulin Albumin/Globulin Ratio Amylase Lipase Vital Signs - 24 hr 07/15/16 07/16/16 21:40 00:11 Temperature 98.5 F Pulse Rate 98 H 84 Respiratory 18 18 Rate Blood Pressure 106/74 110/89 O2 Sat by Pulse 99 100 Oximetry - XRAY 1 XRAY Study: Chest Impression: Normal XRAY Interpretation: nad <Paco Camarena - Last Filed: 07/16/16 00:23> Departure <Gerda Edwards - Last Filed: 07/15/16 23:26> - Departure Time of Disposition Order: 00:21 Certified Medical Emergency: Emergent <Paco Camarena - Last Filed: 07/16/16 00:23> - Departure DIAGNOSIS: Chest pain Qualifiers: Chest pain type: unspecified Qualified Code(s): R07.9 - Chest pain, unspecified URI (upper respiratory infection) Qualifiers: URI type: unspecified URI Qualified Code(s): J06.9 - Acute upper respiratory infection, unspecified Disposition: HOME 01 Condition: Stable Additional Instructions: ED Follow Up Instructions: You have been treated by a care provider in the Emergency Department. These instructions are being provided to you so you can have an understanding of how to care for yourself upon discharge. Upon discharge from the Emergency Department, you are responsible for making arrangements for follow-up care by a physician of your choice. Take all prescribed medications as directed. Return to the Emergency Department immediately for any new or worsening symptoms. You may call the Physician Referral phone number at [phone] to obtain a list of Physicians who are taking new patients. Prescriptions: Azithromycin [Zithromax Z-Tonio] 250 mg PO DIRECTED #1 pkg Referrals: None,PCP [Primary Care Provider] - Attestation - Scribe Verification/Attestation Scribe:: Gerda Edwards Acting as Scribe for:: Paco Camarena Scribe documention review:: This chart was documented by a scribe and accurately reflects the service the provider performed and the decisions made by the provider. <Gerda Edwards - Last Filed: 07/15/16 23:26> - Physician/ ADDY Attestation Patient care was provided by Advanced Practice Provider:: Yes Advanced Practice Provider:: Paco Camarena Advanced Practice Provider documentation review:: The Mid-level provider documentation, treatment plan and medical decision making was reviewed by the physician who agrees with all treatment and medical decision making by the MLP. <Paco Camarena - Last Filed: 07/16/16 00:23> Physician Attestation
[2016-07-16] MEDS ORDERED: ZITHROMAX PO ONE (00:22)
[2016-07-16] MEDS ORDERED: ASPIRIN PO ONE (00:41)
[2016-07-16] MEDS ORDERED: NITROGLYCERIN TOP ONE (00:42)
[2016-07-16] MEDS ORDERED: NORCO-10 PO ONE (00:42)
[2016-07-16 02:15] VITALS: BP 114/64
--- NOTE | 2016-07-16 05:31 | EKG Report ---
Test Performed on : 07/16/2016 01:24:43 AM Test Reason : chest pain Blood Pressure : / mmHG Vent. Rate : 078 BPM Atrial Rate : 078 BPM P-R Int : 160 ms QRS Dur : 078 ms QT Int : 378 ms P-R-T Axes : 060 063 064 degrees QTc Int : 430 ms Normal sinus rhythm. Normal ECG When compared with ECG of 11-JUL-2016 18:01, Vent. rate has increased BY 28 BPM Unconfirmed Result
--- NOTE | 2016-07-16 08:10 | Diag Imaging Result Document ---
PROCEDURE NAME: CHEST-2 VIEWS - 07/15/2016 CHEST X-RAY, 2 VIEWS: 07/15/2016. COMPARISON: 07/11/2016 FINDINGS: The lungs are normally expanded and clear. Heart size and mediastinal contours are normal. No pneumothorax or pleural effusion. IMPRESSION: Negative exam.
== END 2016-07-16 02:13 | disposition home or self-care (01) ==
LOC: ED 21:37
DX: J06.9 Acute upper respiratory infection, unspecified (principal); R07.9 Chest pain, unspecified; R10.9 Unspecified abdominal pain; F17.210 Nicotine dependence, cigarettes, uncomplicated; Z71.6 Tobacco abuse counseling
CPT/HCPCS: 71020; 80053; 82150; 82550; 83690; 84484; 85025; 87804; 93005